=== PATIENT | female | born 1990 | race American Indian/Alaskan Native ===

== ENCOUNTER 2021-06-28 18:58 | Emergency (ER) | payer OTHER, MEDICAID ==
--- NOTE | 2021-06-28 22:54 | Emergency Department Report ---
ED Abdominal Pain HPI - General Chief Complaint: Urogenital-Female Stated Complaint: PELVIC PRESSURE (PREG) Time Seen by Provider: 06/28/21 22:51 Source: patient Mode of arrival: Ambulatory Limitations: No Limitations - History of Present Illness Initial Comments: Patient 30-year-old female who is G3, P2, A0. Last menstrual cycle 2 months ago. Patient denies fevers or chills she endorses bilateral lower abdominal pain and pressure times today. Patient denies vaginal bleeding there is no fever or chills. Patient does endorse vaginal discharge with white malodorous. Patient is denies concern for STI. States she believes she has BV. 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 Patient denies other symptoms there are no exacerbating or relieving factors. Nominal pressure rated at 4/10 at this time. There is no dysuria frequency urgency or hematuria. MD Complaint: abdominal pain - Related Data Previous Rx's Medication Instructions Recorded Last Taken Type metroNIDAZOLE [metroNIDAZOLE 1 tube VG DAILY 7 Days 06/29/21 Unknown Rx VAGINAL 0.75% gel] Allergies Allergy/AdvReac Type Severity Reaction Status Date / Time No Known Allergies Allergy Verified 06/28/21 20:44 ED Review of Systems ROS: Stated complaint: PELVIC PRESSURE (PREG) Other details as noted in HPI Constitutional: denies: chills, fever Eyes: denies: eye pain, eye discharge, vision change ENT: denies: ear pain, throat pain Respiratory: denies: cough, shortness of breath, wheezing Cardiovascular: as per HPI Endocrine: no symptoms reported Gastrointestinal: abdominal pain. denies: nausea, vomiting, melena Genitourinary: discharge. denies: urgency, dysuria, frequency, hematuria Musculoskeletal: denies: back pain, joint swelling, arthralgia Skin: denies: rash, lesions Neurological: denies: headache, weakness, paresthesias Psychiatric: denies: anxiety, depression Hematological/Lymphatic: denies: easy bleeding, easy bruising ED Past Medical Hx - Past Medical History Hx Sickle Cell Disease: Yes - Surgical History Past Surgical History?: No - Medications Home Medications: Home Medications Medication Instructions Recorded Confirmed Last Taken Type metroNIDAZOLE [metroNIDAZOLE 1 tube VG DAILY 7 Days 06/29/21 Unknown Rx VAGINAL 0.75% gel] ED Physical Exam - General Limitations: No Limitations General appearance: alert, in no apparent distress - Head Head exam: Present: atraumatic, normocephalic - Eye Eye exam: Present: normal appearance, EOMI Pupils: Present: normal accommodation - ENT ENT exam: Present: mucous membranes moist - Neck Neck exam: Present: normal inspection, full ROM. Absent: tenderness - Respiratory Respiratory exam: Present: normal lung sounds bilaterally. Absent: respiratory distress, wheezes, stridor, chest wall tenderness - Cardiovascular Cardiovascular Exam: Present: regular rate, normal rhythm, normal heart sounds - GI/Abdominal GI/Abdominal exam: Present: soft, normal bowel sounds. Absent: distended, tenderness - Rectal Rectal exam: Present: deferred - Extremities Exam Extremities exam: Present: normal inspection, full ROM - Back Exam Back exam: Present: normal inspection, full ROM. Absent: CVA tenderness (R), CVA tenderness (L) - Neurological Exam Neurological exam: Present: alert, oriented X3, CN II-XII intact, normal gait - Expanded Neurological Exam Expanded Patient oriented to: Present: person, place, time Speech: Present: fluid speech Motor strength exam: RUE: 5, LUE: 5, RLE: 5, LLE: 5 Best Eye Response ([place]): (4) open spontaneously Best Motor Response ([place]): (6) obeys commands Best Verbal Response ([place]): (5) oriented Sandip Total: 15 - Psychiatric Psychiatric exam: Present: normal affect, normal mood - Skin Skin exam: Present: warm, dry, intact, normal color. Absent: rash ED Course Vital Signs 06/28/21 20:47 Temperature 98.4 F Pulse Rate 88 Respiratory 18 Rate Blood Pressure 106/72 O2 Sat by Pulse 100 Oximetry ED Medical Decision Making - Lab Data Result diagrams: 06/28/21 22:58 Labs 06/28/21 06/28/21 06/28/21 21:14 22:58 22:58 WBC 7.6 RBC 3.87 Hgb 10.2 Hct 30.0 L MCV 77 L MCH 26 L MCHC 34 RDW 17.6 H Plt Count 136 L Lymph % (Auto) 29.6 [place] % (Auto) 5.9 Eos % (Auto) 0.7 Baso % (Auto) 0.2 Lymph # (Auto) 2.2 Tucker # (Auto) 0.5 Eos # (Auto) 0.1 Baso # (Auto) 0.0 Seg Neutrophils % 63.6 Seg Neutrophils # 4.8 HCG, Quant 82770 H Urine Color Yellow Urine Turbidity Clear Urine pH 8.0 H Ur Specific [place] 1.012 Urine Protein <15 mg/dl Urine Glucose (UA) Neg Urine Ketones Neg Urine Blood Neg Urine Nitrite Neg Urine Bilirubin Neg Urine Urobilinogen < 2.0 Ur Leukocyte Esterase Neg Urine WBC (Auto) 1.0 Urine RBC (Auto) < 1.0 U Epithel Cells (Auto) 1.0 Urine Bacteria (Auto) 1+ Urine HCG, Qual Negative - EKG Data Transabdominal and transvaginal OB ultrasound INDICATION: Pain FINDINGS: There is a single live intrauterine . Gestational sac 2.97 mm measuring 18 weeks 1 day. [place]-rump length 1.56 mm measuring 8 weeks 0 days. pole appear normal. Ovaries are normal in size and appearance. heart rate 1 27 bpm. Uterus measures 6.9 x 5.3 x 6.7 cm. IMPRESSION: Live intrauterine measuring 8 weeks 1 day Signer Name: Mendoza Murphy MD Signed: 06/29/2021 2:15 AM Workstation Name: [id number] Transcribed By: TARSHA Dictated By: LUPILLO MURPHY MD Electronically Authenticated By: LUPILLO MURPHY MD Signed Date/Time: 06/29/21214 DD/ 3 TD/TT: 06/29/21 03:00 - Radiology Data Radiology results: pending, report reviewed, image reviewed - Medical Decision Making Ultrasound OB single IUP heart rate 1 2 7 bpm. Critical care attestation.: If time is entered above; I have spent that time in minutes in the direct care of this critically ill patient, excluding procedure time. ED Disposition Clinical Impression: Urinary tract infection during intrauterine Qualifiers: Weeks of gestation: 8 weeks Qualified Code(s): Z3A.08 - 8 weeks gestation of Disposition: 01 HOME / SELF CARE / HOMELESS Is pt being admited?: No Does the pt Need Aspirin: No Condition: Stable Instructions: and Urinary Tract Infection Additional Instructions: Use medications as prescribed. Follow-up with your doctor in 2 to 3 days. Return to emergency department should symptoms worsen. Prescriptions: metroNIDAZOLE [metroNIDAZOLE VAGINAL 0.75% gel] 1 tube VG DAILY 7 Days Referrals: PRIMARY CAREMD [Primary Care Provider] - 3-5 Days Forms: Work/School Release Form(ED) Time of Disposition: 03:08
[2021-06-28 23:01] LABS: Color,Urine Yellow (Yellow)
[2021-06-28 23:02] LABS: Bacteria,Urine 1+ /HPF (Negative); Bilirubin,Urine NEG (Negative); Blood,Urine NEG (Negative); Protein,Urine <15 mg/dL mg/dL (Negative); RBC,Urine < 1.0 /HPF (0.0-6.0); Urobilinogen,Urine < 2.0 mg/dL (<2.0)
[2021-06-28 23:12] LABS: HCG Qualitative,Urine Negative (Negative)
[2021-06-28 23:20] LABS: Basophils % (Auto) 0.2 % (0.0-1.8); Eosinophils # (Auto) 0.1 K/mm3 (0.0-0.4); Eosinophils % (Auto) 0.7 % (0.0-4.3); Hemoglobin 10.2 gm/dl (10.1-14.3); Lymphocytes # (Auto) 2.2 K/mm3 (1.2-5.4); Lymphocytes % (Auto) 29.6 % (13.4-35.0); Mean Corpuscular HGB Conc 34 % (30-34); Mean Corpuscular Volume 77 fl (79-97); Monocytes # (Auto) 0.5 K/mm3 (0.0-0.8); Monocytes % (Auto) 5.9 % (0.0-7.3); Platelet Count 136 K/mm3 (140-440); Red Blood Count 3.87 M/mm3 (3.65-5.03); Red Cell Distribution Width 17.6 % (13.2-15.2)
--- NOTE | 2021-06-29 02:19 | Ultrasound Report ---
Transabdominal and transvaginal OB ultrasound INDICATION: Pain FINDINGS: There is a single live intrauterine . Gestational sac 2.97 mm measuring 18 weeks 1 day. [place]-rump length 1.56 mm measuring 8 weeks 0 days. pole appear normal. Ovaries are normal in size and appearance. heart rate 1 27 bpm. Uteru s measures 6.9 x 5.3 x 6.7 cm. IMPRESSION: Live intrauterine measuring 8 weeks 1 day Signer Name: Mendoza Murphy MD Signed: 06/29/2021 2:15 AM Workstation Name: [id number]
[2021-06-29 03:43] VITALS: BP 115/79
== END 2021-06-29 03:42 | disposition home or self-care (01) ==
LOC: ED 18:58
DX: R10.2 Pelvic and perineal pain (principal); Z53.21 Procedure and treatment not carried out due to patient leaving prior to being seen by health care provider
CPT/HCPCS: 36415; 76801; 76817; 81001; 81025; 84702; 85025; 99284